=== PATIENT | male | born 1985 | race Caucasian/White ===

== ENCOUNTER 2016-11-13 08:29 | Emergency (ER) | payer BC ==
[~2016-11-13] VITALS: Ht 172.7 cm; Wt 75.7 kg
[2016-11-13 09:46] VITALS: BP 128/78
== END 2016-11-13 09:49 | disposition home or self-care (01) ==
LOC: ED 09:30
DX: R20.2 Paresthesia of skin (principal); Z88.0 Allergy status to penicillin
CPT/HCPCS: 99283